=== PATIENT | female | born 1960 | race African-American/Black ===

== ENCOUNTER 2017-06-09 08:25 | Emergency (ER) | payer BC ==
[~2017-06-09] VITALS: Ht 165.1 cm; Wt 90.7 kg
--- NOTE | ~2017-06-09 | EKG ---
PATIENT: CARMEN GRAY UNIT #: [id number] Ventricular Rate: 81 BPM Atrial Rate: 89 BPM P-R Interval: 166 ms QRS Duration: 74 ms Q-T Interval: 372 ms QTC Calculation(Bezet): 432 ms P Gregory: 53 degrees Calculated R Gregory: -4 degrees Calculated T Gregory: 32 degrees Diagnosis Line: Normal sinus rhythm with sinus arrhythmia Diagnosis Line: Normal ECG Diagnosis Line: When compared with ECG of 15-AUG-2010 08:05, Diagnosis Line: Nonspecific T wave abnormality now evident in Diagnosis Line: Lateral leads Diagnosis Line: Confirmed by BELGICA ALTAMIRANO MD ([id number]) on 06/09/2017 Diagnosis Line: 6:30:34 PM INTERPRETING MD: EVELIA MAX
--- NOTE | ~2017-06-09 | CT16 ---
[facility] A Service of [facility] RADIOLOGY TEXT RESULTS PATIENT: CARMEN GRAY LOCATION: [facility] : 64 UNIT #: [id number] AGE: [address]: Nathalia Serrano APRN SEX: F ORDER DR: [id number] [facility] [address] [place], [place] [address] [id number] E MR#: [id number] Acc #: [id number] NAME: CARMEN GRAY. : 1960 SEX: F STUDY DATE/TIME: 06/09/2017 10:55 UNIT: [facility] ROOM: STUDY DESCRIPTION: CT Angio Chest for PE Attending Physician: Nathalia Serrano A.P.R.N. Ordering Physician: Jimenez Escamilla M.D. Primary Care Physician: Roberto Carlos Saucedo M.D. MEDICAL IMAGING REPORT This report is preliminary unless electronic signature is present EXAM CT angiography chest for PE HISTORY Right upper back pain since 06/07/2017. No known injury. Evaluate for PE. FINDINGS CT pulmonary angiography performed with intravenous administration 80 mL Isovue-370. No prior dedicated CTs of chest for comparison. This CT examination was performed with one or more of the following radiation dose reduction techniques: automatic exposure control, adjustment of mA and/or kV according to patient size, and iterative reconstruction. Limited views of the lower thorax from CT abdomen and pelvis 06/13/2010. Three-dimensional reconstructions performed through pulmonary arteries. Study degraded by streak artifact from jewelry not removed prior to examination. There is evidence of prior left shoulder orthopedic intervention. Thyroid unremarkable. No axillary, mediastinal or hilar adenopathy. Heart normal in size. No pleural effusions. Diffuse fatty infiltration of the liver. Ovoid enhancing focus segment 7 measuring approximately 2.3 cm x 1.8 cm transversely. In 2009, it measured 2 cm x 1.3 cm. Appearance and slow rate of change favors benign etiology such as hemangioma or focal nodular hyperplasia. It could be more fully characterized with multiphase contrast-enhanced CT or MRI if it would assist in management. Status post cholecystectomy. No biliary obstruction. Calcified granulomata in spleen. Pancreas, adrenal glands unremarkable. Small cyst upper pole left kidney. No upper abdominal adenopathy. The esophagus, stomach, visualized small bowel and colon unremarkable. Subpleural scarring posterior right upper lobe. There are some areas of mild bronchial wall thickening in the upper lung zones, right greater than left. This could be a reflection of acute bronchitis or chronic change in this region. No suspicious nodule. No dense airspace disease. The bony structures show degenerative change in the spine. No acute bony abnormality. Pulmonary arteries are well opacified. [facility]. [facility] A Service of [facility] RADIOLOGY TEXT RESULTS PATIENT: CARMEN GRAY LOCATION: [facility] : 64 UNIT #: [id number] AGE: [address]: Nathalia Serrano [employer] SEX: F ORDER DR: No PE. No aortic dissection. Mildly ectatic ascending aorta measuring about 3.5 cm in diameter. Visualized aortic branch vessels are patent. IMPRESSION 1. No PE. 2. Ectatic ascending aorta measuring about 3.5 cm in diameter. No dissection. Visualized aortic branch vessels patent. 3. Lungs notable for subpleural scarring/fibrotic change posterior right upper lobe near the apex. Also in the right upper lobe more inferiorly there is an area of mild bronchial wall thickening with some minimal associated adjacent tree-in-bud type interstitial pattern. This involves only a very small portion of the lung and could be sequelae of chronic inflammation. Possibility of a focal area of mild bronchitis/bronchiolitis could be considered. There is no dense airspace disease. 4. Fatty infiltration of liver. 5. 1.8 cm x 2.3 cm enhancing focus in segment 7 of the liver increased in size from 2010 when it measured 1.3 cm x 2 cm. Appearance and slow rate of change favors a benign etiology such as hemangioma or perhaps focal nodular hyperplasia. If not previously assessed and if it would assist in management, this could be more conclusively characterized with multiphase contrast-enhanced MRI or CT on an elective basis. Dictated by... Devin Anne M.D. THIS IS AN ELECTRONICALLY VERIFIED REPORT Devin Anne M.D. at 06/12/2017 2:47 PM JOHNSON/mark TD: 06/11/2017 11:08 JOB #: [id number] MEDICAL IMAGING REPORT Page 1 of 1 COPY
[~2017-06-09 08:25] MED LIST: ASPIRIN PO; ATENOLOL; BENICAR; BENICAR HCT 40-1 TA1 PO; DYAZIDE 371 CAP 37.5 PO; KCL; KCL PO; LASIX; LEVAQUIN PO; LIPITOR PO; LORTAB 5/500 TA1 TA2 PO; NIFEDIPINE ER60 M1 PO; PHENERGAN25 MG PO; PREMARIN PO; PRILOSEC20 M1 PO; PROCARDIA XL PO; PROTONIX PO; SULAR; TEKTURNA HCT 301 TA1 PO; TEKTURNA HCT 301 TAB PO; TOPROL XL; TOPROL XL PO; VICODIN 5/1 TAB 5/50 PO; WELLBUTRIN PO
[2017-06-09 09:23] LABS: BASOPHIL# 0.1 X10e3 (0-0.3); BASOPHIL% 0.6 % (0-2.5); EOSINOPHIL# 0.1 X10e3 (0-0.7); EOSINOPHIL% 0.9 % (0.0-7.0); HEMATOCRIT 43.7 % (35.0-45.0); HEMOGLOBIN 14.9 gm/dL (12.0-16.0); LYMPHOCYTE# 2.7 X10e3 (1.0-3.5); LYMPHOCYTE% 31.6 % (17.0-45.0); MEAN CELL VOLUME 87.1 FL (83-96); MEAN CORPUSCULAR HEMOGLOBIN 29.8 PG (28-34); MEAN CORPUSCULAR HGB CONC 34.2 g/dL (30-36); MEAN PLATELET VOLUME 8.2 FL (6.5-11.5); MONOCYTE# 0.6 X10e3 (0-1.0); MONOCYTE% 6.5 % (3.0-12.0); NEUTROPHIL# 5.2 X10e3 (1.5-7.1); NEUTROPHIL% 60.4 % (40-75); PLATELET COUNT 285 X10e3 (140-420); RED BLOOD COUNT 5.01 X10e (3.90-5.30); RED CELL DISTRIBUTION WIDTH 14.4 % (11.0-15.5); WHITE BLOOD COUNT 8.6 X10e3 (4.0-10.5)
[2017-06-09 09:26] LABS: DIFF IND NO
[2017-06-09 09:36] LABS: PROTHROMBIN TIME (PATIENT) 11.3 SECONDS (10.0-11.7)
[2017-06-09 09:48] LABS: POC - CKMB <1.0 ng/mL (0.0-7.9); POC - TROPONIN <0.05 ng/mL (<=0.05)
[2017-06-09 09:48] LABS: ALBUMIN SERUM 4.2 g/dL (3.5-5.0); BILIRUBIN,TOTAL 0.9 mg/dL (0.2-2.0); BUN/CREATININE RATIO 18.88; CALCIUM SERUM 9.2 mg/dL (8.4-10.2); CREATININE SERUM 0.9 mg/dL (0.6-1.4); GLOM FILT RATE Estimated 83.5 mL/min (>60); POTASSIUM 3.5 mmol/L (3.5-5.1); PROTEIN TOTAL SERUM 7.9 g/dL (6.0-8.3)
[2017-06-09 10:05] LABS: URINE SOURCE CLEAN CATCH
[2017-06-09 10:13] LABS: URINE APPEARANCE CLEAR; URINE BILIRUBIN NEG (NEG); URINE BLOOD NEG (NEG); URINE COLOR DK YELLOW; URINE GLUCOSE NEG (NEG); URINE KETONE TRACE (NEG); URINE LEUKOCYTE ESTERASE 1+ (NEG); URINE NITRATE NEG (NEG); URINE PROTEIN TRACE (NEG); URINE SPECIFIC GRAVITY 1.036 (1.003-1.035)
[2017-06-09 10:18] LABS: CULTURE INDICATED? YES; URINE BACTERIA AUWI 2+ (NEGATIVE); URINE SQUAMOUS EPITHELIAL CELL MOD /[HPF]
[2017-06-09 10:34] LABS: URINE MUCUS PRESENT
== END 2017-06-09 13:00 | disposition home or self-care (01) ==
LOC: CED 08:25
PROVIDERS: Nurse Practitioner
DX: M54.6 Pain in thoracic spine (principal); I10 Essential (primary) hypertension; F17.210 Nicotine dependence, cigarettes, uncomplicated; Z88.5 Allergy status to narcotic agent
CPT/HCPCS: 36415; 71275; 80053; 81003; 82553; 82947; 84484; 85025; 85610; 87086; 93005; 96374; 96375; 99284; J1170; J1885; J2405; Q9967

== ENCOUNTER → 2017-06-16 | Outpatient (CLI) | payer BC ==
--- NOTE | ~2017-06-16 | NM8 ---
[facility] A Service of [facility] RADIOLOGY TEXT RESULTS PATIENT: CARMEN GRAY LOCATION: [facility] : 64 UNIT #: [id number] AGE: [address]: Roberto Carlos Saucedo MD SEX: F ORDER DR: [id number] [facility] [address] [place], [place] [address] [id number] O MR#: [id number] Acc #: [id number] NAME: CARMEN GRAY : 1960 SEX: F STUDY DATE/TIME: 06/16/2017 12:44 UNIT: [facility] ROOM: STUDY DESCRIPTION: NM Bone or Joint Whole Body Attending Physician: Roberto Carlos Saucedo M.D. Referring Physician: Roberto Carlos Saucedo M.D. Ordering Physician: Roberto Carlos Saucedo M.D. Primary Care Physician: Roberto Carlos Saucedo M.D. MEDICAL IMAGING REPORT This report is preliminary unless electronic signature is present EXAM Whole-body bone scan 06/16/2017 HISTORY Order states pain in right scapula. Attention right scapula. History sheet states right upper quadrant and back pain for 9 days right scapular region. No trauma. CT last week. No history of cancer. Surgeries include cholecystectomy, tubal, hysterectomy and reported breast lumpectomy. Type [address] angiogram chest for pulmonary embolism 06/09/2017. Bilateral mammogram 08/26/2016. TECHNIQUE The patient received 27.5 mCi technetium-MDP intravenously and anterior and posterior whole-body scans are supplemented by spot images of the calvarium and thorax. FINDINGS There is no abnormal osseous uptake. Minimal bilateral AC joint uptake is likely arthritic. Kidneys are visualized. There is very minimal right breast uptake which appears to be fairly superficial in location. No correlative mammographic or CT findings are noted. Correlate clinically regarding need for further breast evaluation. Patient's most recent mammogram was on 08/26/2016. The thorax and scapula are unremarkable. Kidneys are visualized. IMPRESSION 1. No abnormal osseous uptake. The scapulae are normal. Minimal bilateral AC joint uptake is likely arthritic. [facility] A Service of [facility] RADIOLOGY TEXT RESULTS PAT[facility]: CARMEN [facility]RAY [id number] [birth year] UNIT #: [id number] AGE: [address]: Roberto Carlos Saucedo MD SEX: F ORDER DR: 2. Very minimal asymmetric right breast uptake is nonspecific. The patient's most recent mammogram was on 08/26/2016. Consider clinical exam and breast imaging as clinically warranted. STAT * RESULT Dictated by... Tanya Manzo M.D. THIS IS AN ELECTRONICALLY VERIFIED REPORT Tanya Manzo M.D. at 06/17/2017 1:39 PM ZEUS/susan TD: 06/17/2017 11:19 JOB #: [id number] MEDICAL IMAGING REPORT Page 1 of 1 COPY
== END | disposition home or self-care (01) ==
LOC: CNUC 09:03
DX: M25.511 Pain in right shoulder (principal)
CPT/HCPCS: 78306; A9503

== ENCOUNTER → 2017-06-23 | Outpatient (CLI) | payer BC ==
--- NOTE | ~2017-06-23 | MR163 ---
[facility] A Service of [facility] RADIOLOGY TEXT RESULTS PATIENT: CARMEN GRAY LOCATION: [facility] : 64 UNIT #: [id number] AGE: [address]: Roberto Carlos Saucedo MD SEX: F ORDER DR: [id number] [facility] [address] [place], [place] [address] [id number] O MR#: [id number] Acc #: [id number] NAME: CARMEN GRAY : 1960 SEX: F STUDY DATE/TIME: 06/23/2017 7:27 UNIT: [facility] ROOM: STUDY DESCRIPTION: MR Shoulder WWo Contrast Rt Attending Physician: Roberto Carlos Saucedo M.D. Referring Physician: Roberto Carlos Saucedo M.D. Ordering Physician: Roberto Carlos Saucedo M.D. Primary Care Physician: Roberto Carlos Saucedo M.D. MRI CENTER REPORT This report is preliminary unless electronic signature is present. EXAM MRI right scapula without and with IV contrast, 06/23/2017 HISTORY Order states increased uptake, abnormal bone scan. History sheet states right scapular pain and throbbing for 2 weeks. Constant pain. No known trauma. Diabetic. No history of cancer. Opposite left rotator cuff surgery. COMPARISON Breast MRI without and with IV contrast 06/19/2017. Bone scan, 06/16/2017. CT angiogram chest for pulmonary embolism 06/09/2017. FINDINGS The right scapula and periscapular soft tissues are normal. There is no fracture or marrow lesion. No fluid collections or abnormal enhancement is identified. There is no axillary adenopathy obviously demonstrated. No muscle atrophy or edema to suggest denervation is seen. Protocol was not specific for the shoulder. Nevertheless, there is minimal hypertrophic arthrosis at the AC joint. There is no obvious rotator cuff or biceps tendon tear. Glenohumeral joint is grossly normal. Visualized thorax shows no obvious abnormality. Visualized ribs are within normal limits. IMPRESSION Normal MRI of the right scapula and periscapular tissues. Dictated by... Tanya Manzo M.D. THIS IS AN ELECTRONICALLY VERIFIED REPORT Tanya Manzo M.D. at 06/24/2017 1:[address] [facility] A Service of [facility] RADIOLOGY TEXT RESULTS PATIENT: CARMEN GRAY [facility] [birth year] UNIT #: [id number] AGE: [address]: Roberto Carlos Saucedo MD SEX: F ORDER DR: ZEUS/sienna TD: 06/24/2017 10:56 JOB #: [id number] MRI CENTER REPORT Page 1 of 1 COPY
[2017-06-23 07:45] LABS: POC - CREATININE 1.11 mg/dL (0.44-1.03); POC - GFR >60.0 mL/min (>60)
== END | disposition home or self-care (01) ==
LOC: CMRI 06:52
PROVIDERS: Internal Medicine
DX: R93.7 Abnormal findings on diagnostic imaging of other parts of musculoskeletal system (principal)
CPT/HCPCS: 73223; 82565; A9577

== ENCOUNTER → 2017-07-01 | Outpatient (CLI) | payer BC ==
--- NOTE | ~2017-07-01 | MR2 ---
[facility] A Service of [facility] RADIOLOGY TEXT RESULTS PATIENT: CARMEN GRAY LOCATION: [facility] : 64 UNIT #: [id number] AGE: [address]: Roberto Carlos Saucedo MD SEX: F ORDER DR: [id number] [facility] [address] [place], [place] [address] [id number] O MR#: [id number] Acc #: [id number] NAME: CARMEN GRAY : 1960 SEX: F STUDY DATE/TIME: 07/01/2017 8:11 UNIT: [facility] ROOM: STUDY DESCRIPTION: MR Abdomen WWo Cont Attending Physician: Roberto Carlos Saucedo M.D. Referring Physician: Roberto Carlos Saucedo M.D. Ordering Physician: Roberto Carlos Saucedo M.D. Primary Care Physician: Roberto Carlos Saucedo M.D. MRI CENTER REPORT This report is preliminary unless electronic signature is present. EXAM MR abdomen INDICATIONS Liver mass. Initial MR staging. TECHNIQUE Multiplanar MRI of the abdomen with and without IV contrast (17 mL MultiHance IV contrast). COMPARISON CT chest 06/09/[address] abdomen 06/13/2010. FINDINGS The liver is morphologically normal. No evidence of cirrhosis. There is geographic hepatic steatosis. There is a mass in the posterior right hepatic lobe (segment VII) measuring 2.4 x 1.9 cm on the MRI. This mass has isointense T1 signal, hyperintense T1 fat saturation signal, and hypointense T2 signal. Following administration of contrast, there is early arterial enhancement which fades to background signal intensity similar to background liver. Phase II signal intensity is slightly above background liver (please note that the liver is inherently decreased in signal due to hepatic steatosis). This lesion is likely a focal nodular hyperplasia, however, the background steatosis does make the imaging appearance slightly unusual. No additional liver lesions are identified. The hepatic vasculature is widely patent. The gallbladder is surgically absent. The pancreas, spleen, adrenal glands, and kidneys are within normal limits. There is a small hemorrhagic cyst in the superior-pole left kidney. There are some benign calcifications in the spleen. [facility] A Service of [facility] & [facility] RADIOLOGY TEXT RESULTS PATIENT: CARMEN GRAY LOCATION: [facility] : 64 UNIT #: [id number] AGE: [address]: Roberto Carlos Saucedo MD SEX: F ORDER DR: IMPRESSION 1. Diffuse geographic hepatic steatosis. 2. 2.4 cm mass in the superior right hepatic lobe (segment VII). This has slightly increased in size since a 2010 comparison (1.9 cm). This has imaging appearance most typical for an area of focal nodular hyperplasia, however, the appearance is somewhat unusual, which is most likely attributable to the diffuse steatosis, rather than the lesion itself. I would recommend a precautionary followup study in 6-12 months to confirm. Atypical hemangioma or atypical hepatic angioma are considered less likely. 3. Patent hepatic vasculature. Dictated by... Soct Payan M.D. THIS IS AN ELECTRONICALLY VERIFIED REPORT Scot Payan M.D. at 07/02/2017 9:45 AM ANDREW/maureen TD: 07/01/2017 20:10 JOB #: [id number] MRI CENTER REPORT Page 1 of 1 COPY
== END | disposition home or self-care (01) ==
LOC: CMRI 06:55
DX: K76.9 Liver disease, unspecified (principal); K76.0 Fatty (change of) liver, not elsewhere classified; R16.0 Hepatomegaly, not elsewhere classified
CPT/HCPCS: 74183; A9577